=== PATIENT | female | born 1940 | race Native Hawaiian/Other Pacific Islander ===

== ENCOUNTER 2016-09-25 10:07 | Outpatient (CLI) | payer OTHER | END 2016-09-25 19:03 | disposition home or self-care (01) | LOC: US 10:07 | DX: R22.1 Localized swelling, mass and lump, neck (principal) ==

== ENCOUNTER 2016-10-02 11:04 | Outpatient (CLI) | payer OTHER ==
[2016-10-02 11:41] LABS: PLATELET COUNT 331 K/uL (152-353)
[2016-10-02 11:53] LABS: POTASSIUM 3.6 mmol/L (3.6-5.2); SODIUM 139 mmol/L (136-145)
== END 2016-10-02 20:18 | disposition home or self-care (01) ==
LOC: LABW 11:04
PROVIDERS: Registered Nurse
DX: R53.1 Weakness (principal); R19.7 Diarrhea, unspecified
CPT/HCPCS: 36415; 80053; 85027

== ENCOUNTER 2017-02-23 05:42 | Emergency (ER) | payer OTHER ==
[~2017-02-23] VITALS: Ht 162.6 cm; Wt 68.0 kg
[2017-02-23] MEDS ORDERED: METFORMIN HCL500 M1 PO (05:51)
[2017-02-23] MEDS ORDERED: LEVO0.0529 PO (05:51)
[2017-02-23 06:22] LABS: PLATELET COUNT 198 K/uL (152-353)
[2017-02-23 06:28] LABS: POTASSIUM 4.6 mmol/L (3.6-5.2); SODIUM 137 mmol/L (136-145)
[2017-02-23 06:37] LABS: PARTIAL THROMBOPLASTIN TIME 20.6 SECONDS (24.5-33.6)
[2017-02-23 08:11] VITALS: TEMP 98.2
[2017-02-23 08:20] VITALS: BP 118/76
== END 2017-02-23 08:20 | disposition short-term general hospital (02) ==
LOC: ED 05:42
DX: I21.19 ST elevation (STEMI) myocardial infarction involving other coronary artery of inferior wall (principal); E03.8 Other specified hypothyroidism
CPT/HCPCS: 36415; 36600; 80053; 82550; 82805; 84443; 84484; 85027; 85610; 85730; 93005; 96365; 96366; 96374; 99285; J1644

== ENCOUNTER 2017-07-01 10:14 | Outpatient (CLI) | payer OTHER ==
[~2017-07-01 10:14] MED LIST: LEVO0.0529 PO; METFORMIN HCL500 M1 PO
[2017-07-01 11:20] LABS: PLATELET COUNT 204 K/uL (152-353)
[2017-07-01 12:03] LABS: POTASSIUM 4.6 mmol/L (3.6-5.2); SODIUM 137 mmol/L (136-145)
== END 2017-07-01 19:38 | disposition home or self-care (01) ==
LOC: LABW 10:14
PROVIDERS: Nurse Practitioner Family
DX: E11.9 Type 2 diabetes mellitus without complications (principal); E78.4 Other hyperlipidemia; E03.8 Other specified hypothyroidism
CPT/HCPCS: 80053; 80061; 83036; 84443; 85027

== ENCOUNTER 2018-02-04 08:49 | Outpatient (CLI) | payer OTHER ==
[2018-02-04 09:40] LABS: POTASSIUM 4.7 mmol/L (3.6-5.2)
== END 2018-02-04 21:13 | disposition home or self-care (01) ==
LOC: LABW 08:49
PROVIDERS: Internal Medicine Cardiovascular Disease
DX: I10 Essential (primary) hypertension (principal); I50.9 Heart failure, unspecified
CPT/HCPCS: 36415; 80048

== ENCOUNTER 2018-05-10 08:47 | Outpatient (CLI) | payer OTHER ==
[2018-05-10 09:45] LABS: POTASSIUM 4.6 mmol/L (3.6-5.2)
== END 2018-05-10 19:41 | disposition home or self-care (01) ==
LOC: LABW 08:47
PROVIDERS: Specialist
DX: I10 Essential (primary) hypertension (principal)
CPT/HCPCS: 36415; 80048

== ENCOUNTER 2018-11-24 11:05 | Outpatient (CLI) | payer OTHER | END 2018-11-24 23:35 | disposition home or self-care (01) | LOC: RAD 11:05 | DX: M54.6 Pain in thoracic spine (principal) ==

== ENCOUNTER 2019-01-28 09:17 | Outpatient (CLI) | payer OTHER | END 2019-01-28 23:42 | disposition home or self-care (01) | LOC: RAD 09:17 | DX: M54.6 Pain in thoracic spine (principal) ==

== ENCOUNTER 2019-06-23 12:49 | Outpatient (CLI) | payer OTHER | END 2019-06-23 19:34 | disposition home or self-care (01) | LOC: LABW 12:49 | DX: D45 Polycythemia vera (principal) | CPT/HCPCS: 36415; 85014; 85018 ==

== ENCOUNTER 2019-06-29 12:36 | Outpatient (CLI) | payer OTHER | END 2019-06-29 19:27 | disposition home or self-care (01) | LOC: RAD 12:36 | DX: R10.9 Unspecified abdominal pain (principal) ==

== ENCOUNTER 2019-06-29 12:37 | Outpatient (CLI) | payer OTHER | END 2019-06-29 19:28 | disposition home or self-care (01) | LOC: RAD 12:37 | DX: R10.84 Generalized abdominal pain (principal) ==

== ENCOUNTER 2019-07-04 14:52 | Outpatient (CLI) | payer OTHER | END 2019-07-04 15:08 | disposition short-term general hospital (02) | LOC: AMB 14:52 | DX: R06.02 Shortness of breath (principal); R07.81 Pleurodynia | CPT/HCPCS: A0425; A0427 ==

== ENCOUNTER 2019-07-04 15:09 | Emergency (ER) | payer OTHER ==
[~2019-07-04] VITALS: Ht 170.2 cm; Wt 74.8 kg
[2019-07-04 15:11] VITALS: TEMP 97.3
[2019-07-04 15:48] LABS: PLATELET COUNT 215 K/uL (152-353)
[2019-07-04 15:56] LABS: POTASSIUM 3.9 mmol/L (3.6-5.2); SODIUM 137 mmol/L (136-145)
[2019-07-04 16:03] LABS: PARTIAL THROMBOPLASTIN TIME 21.6 SECONDS (24.5-33.6)
[2019-07-04 19:15] VITALS: BP 167/76
== END 2019-07-04 19:15 | disposition home or self-care (01) ==
LOC: ED 15:09
PROVIDERS: Student in an Organized Health Care Education/Training Program
DX: R06.09 Other forms of dyspnea (principal); R07.89 Other chest pain
CPT/HCPCS: 80048; 81000; 83735; 83880; 84484; 85027; 85610; 85730; 93005; 96374; 99284; J1940; Q9963

== ENCOUNTER 2019-10-05 16:57 | Observation (INO) | payer OTHER ==
[~2019-10-05] VITALS: Ht 170.2 cm; Wt 67.8 kg
[2019-10-05 16:57] VITALS: BP 129/65; TEMP 97.5
[2019-10-05 17:16] LABS: PLATELET COUNT 261 K/uL (152-353)
[2019-10-05 17:23] LABS: POTASSIUM 4.5 mmol/L (3.6-5.2); SODIUM 138 mmol/L (136-145)
[2019-10-05 18:00] VITALS: BP 121/45
[2019-10-06 01:27] VITALS: BP 151/56; TEMP 98; Ht 170.2 cm; Wt 67.8 kg
[2019-10-06 05:08] VITALS: BP 121/44; TEMP 98.8
[2019-10-06] MEDS ORDERED: IPRAAER PO (12:06)
[2019-10-06] MEDS ORDERED: LEVEMIR FL100 UNIT/M SC (12:07)
[2019-10-06] MEDS ORDERED: CARV12.5 PO (12:08)
[2019-10-06] MEDS ORDERED: FLUC150T PO (12:10)
[2019-10-06] MEDS ORDERED: ENTRESTO 24-261 TAB PO (12:14)
[2019-10-06] MEDS ORDERED: FURO20TA67 PO (12:15)
[2019-10-06] MEDS ORDERED: CARV6.25 PO (12:16)
[2019-10-06] MEDS ORDERED: EUTHYROX75 MCG PO (12:19)
== END 2019-10-06 17:50 | disposition home or self-care (01) ==
LOC: ED 16:57 → MED/SURG 19:15
PROVIDERS: ADMIT Hospitalist
DX: R07.89 Other chest pain (principal); E11.9 Type 2 diabetes mellitus without complications; J44.9 Chronic obstructive pulmonary disease, unspecified; E03.8 Other specified hypothyroidism; I11.0 Hypertensive heart disease with heart failure; I50.9 Heart failure, unspecified; R53.1 Weakness; I25.10 Atherosclerotic heart disease of native coronary artery without angina pectoris; I25.2 Old myocardial infarction; F03.90 Unspecified dementia, unspecified severity, without behavioral disturbance, psychotic disturbance, mood disturbance, and anxiety
CPT/HCPCS: 36415; 36600; 80053; 82550; 82805; 83605; 83880; 84484; 85027; 85610; 87040; 93005; 94640; 94664; 94760; 96360; 96375; 99220; 99284; G0378; J1650; J1815; J2930

== ENCOUNTER 2019-10-19 09:08 | Outpatient (CLI) | payer OTHER ==
[~2019-10-19 09:08] MED LIST changes: +CARV12.5 PO; +CARV6.25 PO; +ENTRESTO 24-261 TAB PO; +EUTHYROX75 MCG PO; +FLUC150T PO; +FURO20TA67 PO; +IPRAAER PO; +LEVEMIR FL100 UNIT/M SC
[2019-10-19 10:05] LABS: POTASSIUM 4.3 mmol/L (3.6-5.2)
== END 2019-10-19 21:36 | disposition home or self-care (01) ==
LOC: INF 09:08 → LABW 09:08
PROVIDERS: Nurse Practitioner Family
DX: D45 Polycythemia vera (principal); E87.5 Hyperkalemia
CPT/HCPCS: 36415; 80053; 85014; 85018; 96360; 99195

== ENCOUNTER 2020-02-19 20:23 | Inpatient (IN) | payer OTHER ==
[~2020-02-19] VITALS: Ht 170.2 cm; Wt 73.6 kg
[2020-02-19 20:24] VITALS: BP 155/47; TEMP 97.8
[2020-02-19 21:00] VITALS: BP 155/44
[2020-02-19 21:04] LABS: PLATELET COUNT 239 K/uL (152-353)
[2020-02-19 21:22] LABS: POTASSIUM 3.5 mmol/L (3.6-5.2); SODIUM 141 mmol/L (136-145)
[2020-02-19 21:30] VITALS: BP 121/42
[2020-02-19 21:38] LABS: PARTIAL THROMBOPLASTIN TIME 23.2 SECONDS (24.5-33.6)
[2020-02-19 22:00] VITALS: BP 112/47
[2020-02-20 01:32] VITALS: BP 135/46; TEMP 97.3; Ht 170.2 cm; Wt 73.6 kg
[2020-02-20] MEDS ORDERED: EUTHYROX50 MCG PO (05:47)
[2020-02-20] MEDS ORDERED: CRESTOR20 MG PO (05:51)
[2020-02-20 08:00] VITALS: BP 143/78; TEMP 97.5
[2020-02-20] MEDS ORDERED: LIPITOR20 MG PO (11:59)
[2020-02-20 12:00] VITALS: BP 126/45; TEMP 98.2
[2020-02-20 16:00] VITALS: BP 133/62; TEMP 98.1
[2020-02-20 20:00] VITALS: BP 130/48; TEMP 98.3
[2020-02-21 00:15] VITALS: BP 155/40; TEMP 98.6
[2020-02-21 04:03] VITALS: BP 154/67; TEMP 97.9
[2020-02-21 08:00] VITALS: BP 163/77; TEMP 98.2
[2020-02-21 10:56] LABS: POTASSIUM 3.7 mmol/L (3.6-5.2)
[2020-02-21 12:00] VITALS: BP 154/44; TEMP 98
[2020-02-21] MEDS ORDERED: LEVAQUIN250 MG PO (15:25)
[2020-02-21 16:00] VITALS: BP 164/59; TEMP 98.1
[2020-02-21 20:00] VITALS: BP 116/68; TEMP 101.5
== END 2020-02-21 21:25 | disposition home or self-care (01) | DRG 639 ==
LOC: ED 20:23 → MED/SURG 22:00
PROVIDERS: Hospitalist; Internal Medicine; ADMIT Internal Medicine Endocrinology, Diabetes & Metabolism
DX: E11.649 Type 2 diabetes mellitus with hypoglycemia without coma (principal); R41.82 Altered mental status, unspecified; J44.9 Chronic obstructive pulmonary disease, unspecified; E03.8 Other specified hypothyroidism; I11.0 Hypertensive heart disease with heart failure; I50.9 Heart failure, unspecified
CPT/HCPCS: 36415; 36600; 51702; 80048; 80053; 80202; 80320; 81000; 82550; 82805; 82962; 83605; 83880; 84484; 85027; 85610; 85730; 87040; 87086; 87088; 87205; 93005; 94640; 94664; 94760; 96374; 96375; 99284; J1100; J1650; J1940; J1956; J3370; J7060

== ENCOUNTER 2020-04-19 11:19 | Inpatient (IN) | payer OTHER ==
[~2020-04-19] VITALS: Ht 157.5 cm; Wt 70.0 kg
[~2020-04-19 11:19] MED LIST changes: +CRESTOR20 MG PO; +EUTHYROX50 MCG PO; +LEVAQUIN250 MG PO; +LIPITOR20 MG PO
[2020-04-19 11:27] VITALS: BP 145/42; TEMP 98.5
[2020-04-19 11:39] LABS: PLATELET COUNT 303 K/uL (152-353)
[2020-04-19 11:58] LABS: POTASSIUM 3.2 mmol/L (3.6-5.2); SODIUM 146 mmol/L (136-145)
[2020-04-19 12:16] LABS: PARTIAL THROMBOPLASTIN TIME 23.8 SECONDS (24.5-33.6)
[2020-04-19] MEDS ORDERED: LEVO0.0723 PO (16:04)
[2020-04-19] MEDS ORDERED: CRESTOR20 MG PO (16:06)
[2020-04-19] MEDS ORDERED: ZINC50 M1 PO (16:07)
[2020-04-19] MEDS ORDERED: ROSE PO (16:08)
[2020-04-19] MEDS ORDERED: VITAMIN C PO (16:08)
[2020-04-19] MEDS ORDERED: [UNRECOGNIZED DRUG - OTHER] PO (16:09)
[2020-04-19] MEDS ORDERED: CALCIUM 600+D31 TAB PO (16:09)
[2020-04-19] MEDS ORDERED: ASPIR-8181 MG PO (16:10)
[2020-04-19 18:10] VITALS: BP 1428/44; TEMP 97.7; Ht 157.5 cm; Wt 70.0 kg
[2020-04-19 20:00] VITALS: BP 132/70; TEMP 98.3
[2020-04-20] VITALS: BP 146/50; TEMP 97.9
[2020-04-20 04:00] VITALS: BP 153/50; TEMP 98.9
[2020-04-20 04:44] LABS: PLATELET COUNT 216 K/uL (152-353)
[2020-04-20 05:27] LABS: POTASSIUM 3.4 mmol/L (3.6-5.2)
[2020-04-20 08:00] VITALS: BP 144/69; TEMP 97.9
[2020-04-20 12:00] VITALS: BP 136/86; TEMP 97.5
[2020-04-20 16:00] VITALS: BP 137/63; TEMP 97.9
[2020-04-20 20:00] VITALS: BP 178/58; TEMP 97.9
[2020-04-21] VITALS: BP 167/50; TEMP 98.1
[2020-04-21 04:00] VITALS: BP 189/81; TEMP 97.8
[2020-04-21 05:54] LABS: PLATELET COUNT 103 K/uL (152-353)
[2020-04-21 06:21] LABS: POTASSIUM 4.2 mmol/L (3.6-5.2)
[2020-04-21 08:00] VITALS: BP 149/47; TEMP 97.9
[2020-04-21 12:00] VITALS: BP 140/52; TEMP 97.9
[2020-04-21 16:00] VITALS: BP 135/56; TEMP 98.2
[2020-04-21 20:00] VITALS: BP 174/62; TEMP 97.5
[2020-04-22] VITALS: BP 166/51; TEMP 97.8
[2020-04-22 04:00] VITALS: BP 163/61; TEMP 98.3
[2020-04-22 08:00] VITALS: BP 169/51; TEMP 97.9
[2020-04-22 12:00] VITALS: BP 152/50; TEMP 97.9
[2020-04-22 14:25] LABS: PLATELET COUNT 214 K/uL (152-353)
[2020-04-22 14:32] LABS: POTASSIUM 4.4 mmol/L (3.6-5.2)
[2020-04-22 16:00] VITALS: BP 135/53; TEMP 97.9
[2020-04-22 20:00] VITALS: BP 153/49; TEMP 98.3
[2020-04-23] VITALS (7 sets, daily range): BP systolic 126–158; BP diastolic 35–58; TEMP 97.7–98.4
[2020-04-23 06:11] LABS: PLATELET COUNT 198 K/uL (152-353)
[2020-04-23 06:19] LABS: POTASSIUM 4.8 mmol/L (3.6-5.2)
[2020-04-24 03:56] VITALS: BP 171/44; TEMP 98.3
[2020-04-24 05:22] LABS: PLATELET COUNT 246 K/uL (152-353)
[2020-04-24 06:08] LABS: POTASSIUM 4.4 mmol/L (3.6-5.2)
[2020-04-24 08:00] VITALS: BP 176/48; TEMP 98
[2020-04-24 12:00] VITALS: BP 131/37; TEMP 98
[2020-04-24 16:00] VITALS: BP 141/43; TEMP 97.4
[2020-04-24 20:00] VITALS: BP 120/94; TEMP 97.6
[2020-04-24 23:15] VITALS: BP 132/81; TEMP 98.2
[2020-04-25 03:58] VITALS: BP 144/43; TEMP 98.2
[2020-04-25 05:29] LABS: PLATELET COUNT 225 K/uL (152-353)
[2020-04-25 05:44] LABS: POTASSIUM 4.3 mmol/L (3.6-5.2)
[2020-04-25 08:00] VITALS: BP 186/56; TEMP 97.9
[2020-04-25 12:00] VITALS: BP 134/48; TEMP 98
[2020-04-25 16:00] VITALS: BP 148/53; TEMP 98.7
[2020-04-25 20:00] VITALS: BP 176/51; TEMP 98
[2020-04-26] VITALS: BP 156/71; TEMP 99.1
[2020-04-26 04:08] VITALS: BP 190/55; TEMP 98.2
[2020-04-26 05:38] LABS: PLATELET COUNT 245 K/uL (152-353)
[2020-04-26 06:06] LABS: POTASSIUM 4.4 mmol/L (3.6-5.2)
[2020-04-26 08:00] VITALS: BP 156/50; TEMP 98
[2020-04-26 12:00] VITALS: BP 157/64; TEMP 98.3
[2020-04-26 16:00] VITALS: BP 174/62; TEMP 98.1
[2020-04-26 20:00] VITALS: BP 158/48; TEMP 98.2
[2020-04-27] VITALS: BP 158/50; TEMP 98.1
[2020-04-27 04:00] VITALS: BP 166/59; TEMP 98.6
[2020-04-27 08:00] VITALS: BP 167/52; TEMP 97.6
[2020-04-27 09:28] LABS: POTASSIUM 4.2 mmol/L (3.6-5.2)
[2020-04-27 10:00] LABS: PLATELET COUNT 307 K/uL (152-353)
[2020-04-27] MEDS ORDERED: FURO20TA67 PO (11:36)
[2020-04-27] MEDS ORDERED: LEVO0.0723 PO (11:37)
[2020-04-27 12:00] VITALS: BP 123/76; TEMP 98.8
== END 2020-04-27 12:20 | DRG 312 ==
LOC: ED 11:19 → MED/SURG 13:00
PROVIDERS: Internal Medicine; Internal Medicine Endocrinology, Diabetes & Metabolism; ADMIT Hospitalist
DX: R55 Syncope and collapse (principal); A52.17 General paresis; I11.0 Hypertensive heart disease with heart failure; I50.9 Heart failure, unspecified; E87.6 Hypokalemia; E13.9 Other specified diabetes mellitus without complications; D72.828 Other elevated white blood cell count; I25.10 Atherosclerotic heart disease of native coronary artery without angina pectoris; E03.8 Other specified hypothyroidism; Z91.81 History of falling; R48.8 Other symbolic dysfunctions; R26.2 Difficulty in walking, not elsewhere classified; R53.1 Weakness; S00.03XA Contusion of scalp, initial encounter; W18.39XA Other fall on same level, initial encounter; Y92.89 Other specified places as the place of occurrence of the external cause; I95.89 Other hypotension
CPT/HCPCS: 36415; 80048; 80053; 80320; 81000; 82533; 82550; 82948; 83880; 84443; 84484; 85027; 85610; 85730; 87635; 93005; 94760; 96360; 96361; 96365; 96366; 96372; 96374; 96375; 99284; J0696; J1650; J1815; J1885; J2060; U0003